=== PATIENT | female | born 1980 | race Caucasian/White ===

== ENCOUNTER 2017-08-01 19:22 | Emergency (ER) | payer SELFPAY ==
[2017-08-01 19:42] VITALS: BP 125/90
--- NOTE | 2017-08-01 20:01 | EDM.PDOC ---
ED HPI GENERAL MEDICAL PROBLEM - General Chief Complaint: ENT Problem Stated Complaint: EAR INFECTION DRAINAGE Time Seen by Provider: 08/01/17 19:33 Source of Information: Reports: Patient, RN Notes Reviewed History Limitations: Reports: No Limitations - History of Present Illness INITIAL COMMENTS - FREE TEXT/NARRATIVE: The patient states that she was putting hydrogen peroxide in her right ear from 07/25/2017 through , 07/28/2017, due to decreased hearing. She developed pain in her right ear this past 07/29/2017. She reports some drainage of brownish material today. She states that she has hallie taking some leftover amoxicillin 500 mg 4 times a day since 07/29/2017, the last dose at 08:00 this morning. She reports numerous prior ear infections. No recent fever. The patient's PCP is Marie Caballero. Treatments BEATER LEAD: Reports: Other (see below) Other Treatments BEATER LEAD: peorixide few days ago Right Ear Pain Score (Numeric/FACES): 9 - Related Data Allergies Allergy/AdvReac Type Severity Reaction Status Date / Time Sulfa (Sulfonamide Allergy Rash Verified 08/01/17 19:34 Antibiotics) Home Meds: Home Meds Aspirin [Ecotrin] 1 tab PO ASDIRECTED PRN 08/01/17 [History] Past Medical History HEENT History: Reports: Allergic Rhinitis - Past Surgical History HEENT Surgical History: Reports: Adenoidectomy, Oral Surgery ([place] teeth extraction), Tonsillectomy Social & Family History - Tobacco Use Smoking Status *Q: Current Some Day Smoker Years of Tobacco use: 16 - Alcohol Use Alcohol Use History: Yes Days Per Week of Alcohol Use: 2 Number of Drinks Per Day: 2 Total Drinks Per Week: 4 Alcohol Use Frequency: Socially - Recreational Drug Use Recreational Drug Use: No - Living Situation & Occupation Living situation: Reports: Single, with Family (daughter) Occupation: Employed (custom dressmaker) ED ROS ENT - Review of Systems Review Of Systems: See Below Constitutional: Reports: No Symptoms HEENT: Reports: No Symptoms Respiratory: Reports: No Symptoms Cardiovascular: Reports: No Symptoms Endocrine: Reports: No Symptoms GI/Abdominal: Reports: No Symptoms : Reports: No Symptoms Musculoskeletal: Reports: No Symptoms Skin: Reports: No Symptoms Neurological: Reports: No Symptoms Psychiatric: Reports: No Symptoms Hematologic/Lymphatic: Reports: No Symptoms Immunologic: Reports: No Symptoms ED EXAM, ENT - Physical Exam Exam: See Below Exam Limited By: No Limitations General Appearance: Alert, WD/WN, No Apparent Distress Eye Exam: Bilateral Eye: Normal Inspection Ears: Normal External Exam, Other (Only brownish dirt in the right external canal, cleaned out with a cotton swab. The canal that appeared to be normal. The right tympanic membrane is grayish in color, but likely with fluid behind the tympanic membrane. No erythema.). No: Auricular Erythema, Auricular Tenderness, Mastoid Tenderness Nose: Normal Inspection, Normal Mucousa, No Blood Mouth/Throat: Normal Inspection, Normal Gums, Normal Lips, Normal Oropharynx, Normal Teeth Head: Atraumatic, Normocephalic Neck: Normal Inspection, Supple, Non-Tender, Full Range of Motion. No: Lymphadenopathy (L), Lymphadenopathy (R) Neurological: Alert, Normal Cognition Psychiatric: Normal Affect Skin: Warm, Dry, Intact, Normal Color, No Rash Course - Vital Signs Last Recorded V/S: Last Vital Signs Temp 36.8 C 08/01/17 19:45 Pulse 75 08/01/17 19:45 Resp 18 08/01/17 19:45 BP 125/90 08/01/17 19:45 Pulse Ox 99 08/01/17 19:45 - Re-Assessments/Exams Free Text/Narrative Re-Assessment/Exam: 08/01/17 19:58 On examination of the patient's right ear, she had oily dirt in the canal, which I removed with a cotton swab. The tympanic membrane is not erythematous, but there may be some fluid in the middle ear. The patient states that she has a history of seasonal allergies; I'm going to recommend that she begin using a nasal steroid spray. I do not see an indication for antibiotics at this time. Departure - Departure Time of Disposition: 19:59 Disposition: Home, Self-Care 01 Condition: Good Clinical Impression: Acute serous otitis media, right ear, Allergic rhinitis - Discharge Information Instructions: Otitis Media, Adult, [id number], Allergic Rhinitis Referrals: Carolyne Caballero INSTRUMENT CALIBRATOR [Primary Care Provider] - Forms: ED Department Discharge Additional Instructions: You were seen in the emergency room for right ear pain and drainage. On examination, you do not have an ear infection, but there appears to be fluid built up in your middle ear, likely as the result of seasonal allergies. We recommend that you STOP taking the amoxicillin, and throat the remaining pills into the trash. Do not flush them down the toilet. We recommend that you START using a nasal steroid spray, such as Flonase or Nasonex, as directed on the label. Follow-up with your PCP, Marie Caballero, as needed. If any other problems, please do not hesitate to return to the ER.
== END 2017-08-01 20:10 | disposition home or self-care (01) ==
LOC: JD.ED 19:22
DX: H65.01 Acute serous otitis media, right ear (principal); J30.9 Allergic rhinitis, unspecified; F17.210 Nicotine dependence, cigarettes, uncomplicated; Z88.2 Allergy status to sulfonamides; Z98.890 Other specified postprocedural states
CPT/HCPCS: 99283

== ENCOUNTER 2017-10-14 18:42 | Emergency (ER) | payer MEDICAID ==
[2017-10-14 19:00] VITALS: BP 136/86
[2017-10-14] MEDS ORDERED: Ketorolac 60 MG/2 ML SDV IM ONE (19:21)
--- NOTE | 2017-10-14 19:28 | EDM.PDOC ---
ED HPI GENERAL MEDICAL PROBLEM - General Chief Complaint: PRESIDENT & FOUNDER Problem Stated Complaint: BAD MENSTRUAL CRAMPS Time Seen by Provider: 10/14/17 19:03 Source of Information: Reports: Patient History Limitations: Reports: No Limitations - History of Present Illness INITIAL COMMENTS - FREE TEXT/NARRATIVE: Is a 37-year-old female. She comes to the ER because she's been having severe menstrual cramps. Apparently this is somewhat normal for her and she tries to take a muscle relaxer for this but it makes her too sleepy to function and she has to function. She has tried [id number] medication such as Advil and Aleve but they have not really helped. She is gone to her OB/ NURSE PRACTITIONER HOSPITALIST doctor who is not really found anything to cause the severe menstrual cramps. They have not provided much of anything for her for these cramps. She is not spoken to her family doctor regarding the cramps and possible therapy. She comes tonight denies any nausea and vomiting denies any diarrhea. She's had no fever no chills no cough no congestion. Her menstrual flow is normal for her. And normally her menstrual periods last for about 5 days. Lower Pelvic Pain Score (Numeric/FACES): 10 - Related Data Allergies Allergy/AdvReac Type Severity Reaction Status Date / Time Sulfa (Sulfonamide Allergy Rash Verified 08/01/17 19:34 Antibiotics) Home Meds: Home Meds Aspirin [Ecotrin] 1 tab PO ASDIRECTED PRN 08/01/17 [History] Meloxicam [Mobic] 15 mg PO DAILY 10/14/17 [History] Muscle Relaxant 1 tab PO TID PRN 10/14/17 [History] traMADol [Ultram] 50 mg PO Q6H PRN #16 tablet 10/14/17 [Rx] Past Medical History - Past Health History Medical/Surgical History: Denies Medical/Surgical History HEENT History: Reports: Allergic Rhinitis Other HEENT History: liimited hearing to the right ear - Past Surgical History HEENT Surgical History: Reports: Adenoidectomy, Oral Surgery, Tonsillectomy Social & Family History - Tobacco Use Smoking Status *Q: Current Some Day Smoker Years of Tobacco use: 2 Packs/Tins Daily: 0.1 Second Hand Smoke Exposure: No - Caffeine Use Caffeine Use: Reports: Coffee, Soda, Tea - Alcohol Use Days Per Week of Alcohol Use: 2 Number of Drinks Per Day: 2 Total Drinks Per Week: 4 - Recreational Drug Use Recreational Drug Use: No Recreational Drug Use Frequency: Rarely - Living Situation & Occupation Living situation: Reports: Single, with Family (daughter) 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 Denies: Diarrhea, Nausea, Vomiting : Reports: Other (Normal menstrual flow). Denies: Dysuria, Flank Pain, Urgency Musculoskeletal: Reports: No Symptoms Skin: Reports: No Symptoms Neurological: Reports: No Symptoms Psychiatric: Reports: No Symptoms Hematologic/Lymphatic: Reports: No Symptoms Immunologic: Reports: No Symptoms ED EXAM, GI/ABD - Physical Exam Exam: See Below Exam Limited By: No Limitations General Appearance: Alert, WD/WN, No Apparent Distress Eyes: Bilateral: Normal Appearance Ears: Normal External Exam Nose: Normal Inspection Throat/Mouth: Normal Inspection Head: Normocephalic Neck: Supple Respiratory/Chest: No Respiratory Distress, Lungs Clear, Normal Breath Sounds Cardiovascular: Regular Rate, Rhythm, No Murmur GI/Abdominal Exam: Soft, Other (Mild suprapubic tenderness on palpation but no upper quadrants or lower quadrant tenderness on palpation) Back Exam: Full Range of Motion Extremities: Normal Inspection, Normal Range of Motion Neurological: Alert, Oriented Psychiatric: Normal Affect, Normal Mood Skin Exam: Warm, Dry Course - Vital Signs Last Recorded V/S: Last Vital Signs Temp 96.9 F 10/14/17 18:59 Pulse 74 10/14/17 18:59 Resp 20 10/14/17 18:59 BP 136/86 10/14/17 18:59 Pulse Ox 99 10/14/17 18:59 - Orders/Labs/Meds Orders: Active Orders 24 hr Category Date Time Status Ketorolac [Toradol] Med 10/14/17 19:21 Once 60 mg IM ONETIME ONE Medication Orders Ketorolac Tromethamine (Toradol) 60 mg IM ONETIME ONE Stop: 10/14/17 19:22 Meds: Medications Generic Name Dose Route Start Last Admin Trade Name Freq PRN Reason Stop Dose Admin Ketorolac Tromethamine 60 mg 10/14/17 19:21 Toradol IM 10/14/17 19:22 ONETIME ONE Departure - Departure Time of Disposition: 19:26 Disposition: Home, Self-Care 01 Condition: Good Clinical Impression: Normal menstrual period, Severe menstrual cramps, Dysmenorrhea, unspecified - Discharge Information Prescriptions: traMADol [Ultram] 50 mg PO Q6H PRN #16 tablet PRN Reason: Pain Instructions: Dysmenorrhea, [id number] Referrals: Angella Khan MD [Primary Care Provider] - Additional Instructions: Using a heating pad to her abdomen, take the medication as needed for the abdominal cramps, follow-up with your family doctor regarding therapy for your severe abdominal cramps each month, you should consider some anti-inflammatory as well as the prescription medications given, return to the ER as needed - My Orders Last 24 Hours: My Active Orders 10/14/17 19:21 Ketorolac [Toradol] 60 mg IM ONETIME ONE - Assessment/Plan Last 24 Hours: My Active Orders 10/14/17 19:21 Ketorolac [Toradol] 60 mg IM ONETIME ONE
== END 2017-10-14 19:39 | disposition home or self-care (01) ==
LOC: SUPCPDRO 18:42 → JD.ED 18:42
DX: N94.6 Dysmenorrhea, unspecified (principal); F17.210 Nicotine dependence, cigarettes, uncomplicated; Z79.82 Long term (current) use of aspirin; Z79.899 Other long term (current) drug therapy; Z88.2 Allergy status to sulfonamides
CPT/HCPCS: 96372; 99284; J1885; 99283

== ENCOUNTER 2018-05-09 02:56 | Emergency (ER) | payer MEDICAID ==
[2018-05-09 03:06] VITALS: BP 122/88
[2018-05-09] MEDS ORDERED: Naproxen 500 MG Tab PO ONE (03:15)
--- NOTE | 2018-05-09 03:21 | EDM.PDOC ---
ED HPI GENERAL MEDICAL PROBLEM - General Chief Complaint: Upper Extremity Injury/Pain Stated Complaint: LEFT WRIST HURTS Time Seen by Provider: 05/09/18 03:06 Source of Information: Reports: Patient, Family (Daughter) History Limitations: Reports: No Limitations - History of Present Illness INITIAL COMMENTS - FREE TEXT/NARRATIVE: The patient states that she has had left wrist pain on and off for about 2 months, after she slept on it wrong. The pain is felt along the ulnar aspect of the wrist, and is made worse with range of motion. No history of trauma. No prior medical evaluation. She came to the ED tonight because she still can't get comfortable. She states that she has tried ice and heat in the past, along with Advil. The patient's PCP is Marie Caballero. The patient expects to see Ms. Caballero later today. Left Wrist Pain Score (Numeric/FACES): 10 - Related Data Allergies Allergy/AdvReac Type Severity Reaction Status Date / Time Sulfa (Sulfonamide Allergy Rash Verified 05/09/18 03:06 Antibiotics) Home Meds: Home Meds Aspirin [Ecotrin] 1 tab PO ASDIRECTED PRN 08/01/17 [History] traMADol [Ultram] 1 tab PO DAILY PRN 05/09/18 [History] Past Medical History HEENT History: Reports: Allergic Rhinitis, Hard of Hearing (liimited hearing to the right ear) Neurological History: Reports: Migraines - Past Surgical History HEENT Surgical History: Reports: Adenoidectomy, Oral Surgery ([place] teeth extraction), Tonsillectomy Social & Family History - Tobacco Use Smoking Status *Q: Current Some Day Smoker Years of Tobacco use: 19 Packs/Tins Daily: 0.1 - Caffeine Use Caffeine Use: Reports: None - Alcohol Use Alcohol Use History: Yes Alcohol Use Frequency: Socially - Recreational Drug Use Recreational Drug Use: No - Living Situation & Occupation Living situation: Reports: Single, with Family (Daughter) Occupation: Unemployed Review of Systems - Review of Systems Review Of Systems: ROS reveals no pertinent complaints other than HPI. ED EXAM, GENERAL - Physical Exam Exam: See Below Exam Limited By: No Limitations General Appearance: Alert, WD/WN, No Apparent Distress Extremities: Other (No visible abnormality to the left wrist, when compared to the right, such as swelling, erythema, ecchymosis, or abrasion. No tenderness to direct palpation of the left wrist or distal left forearm, however, pain is induced in the ulnar aspect of the wrist with both AROM and PROM. Neurovascular status of the left upper extremity is intact.) Course - Vital Signs Last Recorded V/S: Last Vital Signs Temp 35.9 C 05/09/18 03:02 Pulse 84 05/09/18 03:02 Resp 18 05/09/18 03:02 BP 122/88 05/09/18 03:02 Pulse Ox 97 05/09/18 03:02 - Orders/Labs/Meds Orders: Active Orders 24 hr Category Date Time Status Naproxen [Naprosyn] Med 05/09/18 03:15 Once 500 mg PO ONETIME ONE - Re-Assessments/Exams Free Text/Narrative Re-Assessment/Exam: 05/09/18 03:16 The cause of the patient's left wrist pain is unclear. It is not tender to palpation, but pain is induced with ROM. As there is no history of trauma, and there is no tenderness, I don't see an indication for an x-ray at this time. I' ve ordered a single dose of naproxen 500 mg to help with the patient's pain tonight, then she will follow-up with her PCP, Marie Caballero, later today. Departure - Departure Time of Disposition: 03:17 Disposition: Home, Self-Care 01 Condition: Good Clinical Impression: Left wrist pain - Discharge Information Referrals: Carolyne Caballero, CONDITIONING YARD SUPERVISOR [Primary Care Provider] - Additional Instructions: You were seen in the emergency room for left wrist pain on and off since March, without history of trauma. The cause of your wrist pain is not clear, but no emergency medical condition was found on examination. You were given a single dose of prescription strength naproxen in the ER. Follow-up with your PCP, Marie Caballero, later today, for further evaluation and treatment. If any other problems, please do not hesitate to return to the ER. - My Orders Last 24 Hours: My Active Orders 05/09/18 03:15 Naproxen [Naprosyn] 500 mg PO ONETIME ONE - Assessment/Plan Last 24 Hours: My Active Orders 05/09/18 03:15 Naproxen [Naprosyn] 500 mg PO ONETIME ONE
== END 2018-05-09 03:26 | disposition home or self-care (01) ==
LOC: JD.ED 02:56
DX: M25.532 Pain in left wrist (principal); F17.210 Nicotine dependence, cigarettes, uncomplicated; Z88.2 Allergy status to sulfonamides; Z79.899 Other long term (current) drug therapy
CPT/HCPCS: 99283; A9270

== ENCOUNTER 2020-07-25 20:03 | Emergency (ER) | payer MEDICAID ==
[2020-07-25] MEDS ORDERED: HYDROmorphone 1 MG/ML Syringe IVPUSH STA (20:12)
[2020-07-25] MEDS ORDERED: Ondansetron 4 MG/2 ML SDV IVPUSH ONE (20:12)
[2020-07-25] MEDS ORDERED: Sodium Chloride 0.9% 1,000 ML IV SCH (20:15)
[2020-07-25 20:21] VITALS: BP 138/99; PULSE 104
--- NOTE | 2020-07-25 20:28 | EDM.PDOC ---
ED HPI GENERAL MEDICAL PROBLEM - General Chief Complaint: Flank Pain Stated Complaint: LT SIDE FLANK PAIN Time Seen by Provider: 07/25/20 20:12 Source of Information: Reports: Patient, RN Notes Reviewed History Limitations: Reports: No Limitations - History of Present Illness INITIAL COMMENTS - FREE TEXT/NARRATIVE: Patient is a 40-year-old female who presents to the ED for her left-sided flank pain. Patient notes that this is been present for the last 2 days, but has worsened today. She states it kind of comes and goes. She does note that it radiates into her groin as well. She is not taking anything for pain management, she does note that she is going to the bathroom more frequently, but no dysuria. She states last time she is felt anything like this was when she had a UTI roughly 18 years ago with . She notes a little bit of pain at the end of her urination. States her last menstrual period was roughly 1 month ago, and states she could be but is really just unsure. She denies any history of kidney stones. She has not had any fevers or chills, cough or shortness of breath, nausea or vomiting or diarrhea. 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 Neurological History: Reports: Migraines Psychiatric History: Reports: Anxiety - Infectious Disease History Infectious Disease History: Reports: Measles - Past Surgical History HEENT Surgical History: Reports: Adenoidectomy, Oral Surgery, Tonsillectomy Social & Family History - Tobacco Use Smoking Status *Q: Never Smoker - Caffeine Use Caffeine Use: Reports: Soda, Tea - Recreational Drug Use Recreational Drug Use: No - Living Situation & Occupation Living situation: Reports: Single, with Family (Daughter) Occupation: Unemployed ED ROS GENERAL - Review of Systems Review Of Systems: Comprehensive ROS is negative, except as noted in HPI. ED EXAM, RENAL/ - Physical Exam Exam: See Below Exam Limited By: No Limitations General Appearance: Alert, WD/WN, No Apparent Distress Eye Exam: Bilateral Eye: EOMI, Normal Inspection, PERRL Respiratory/Chest: No Respiratory Distress, Lungs Clear, Normal Breath Sounds, No Accessory Muscle Use, Chest Non-Tender Cardiovascular: Normal Peripheral Pulses, Regular Rate, Rhythm, No Murmur GI/Abdominal: Normal Bowel Sounds, Soft, Non-Tender, No Distention, No Mass Back Exam: Normal Inspection, Full Range of Motion, CVA Tenderness (L) Extremities: Normal Inspection, Normal Capillary Refill Neurological: Alert, Oriented, Normal Cognition, No Motor/Sensory Deficits Psychiatric: Normal Affect, Normal Mood Skin Exam: Warm, Dry, Intact, Normal Color, No Rash Course - Vital Signs Last Recorded V/S: Last Vital Signs Temp 97.4 F 07/25/20 20:19 Pulse 104 H 07/25/20 20:19 Resp 20 07/25/20 20:19 BP 138/99 H 07/25/20 20:19 Pulse Ox 98 07/25/20 20:19 - Orders/Labs/Meds Orders: Active Orders 24 hr Category Date Time Status Strain Urine [RC] ASDIRECTED Care 07/25/20 20:12 Ordered Abdomen Pelvis wo Cont [CT] Stat Exams 07/25/20 20:12 Ordered Magnesium Citrate [Citrate of Magnesia] Med 07/25/20 22:21 Once 296 ml PO ONETIME ONE Sodium Chloride 0.9% @ 150 MLS/HR (1000ml Bag) Med 07/25/20 20:15 Ordered Sodium Chloride 0.9% [Normal Saline] 1,000 ml IV ASDIRECTED Medication Orders Sodium Chloride (Normal Saline) 1,000 mls @ 150 mls/hr IV ASDIRECTED SIMONA Last Admin: 07/25/20 20:28 Dose: 150 mls/hr Documented by: BELKIS Labs: Laboratory Tests 07/25/20 07/25/20 07/25/20 Range/Units 20:25 20:25 21:15 WBC 9.31 (3.98-10.04) K/mm3 RBC 5.23 H (3.98-5.22) M/mm3 Hgb 14.3 (11.2-15.7) gm/dl Hct 44.7 (34.1-44.9) % MCV 85.5 (79.4-94.8) fl MCH 27.3 (25.6-32.2) pg MCHC 32.0 L (32.2-35.5) g/dl RDW Std Deviation 43.3 (36.4-46.3) fL Plt Count 369 (182-369) K/mm3 MPV 9.4 (9.4-12.3) fl Neut % (Auto) 78.4 H (34.0-71.1) % Lymph % (Auto) 14.9 L (19.3-51.7) % [place] % (Auto) 5.6 (4.7-12.5) % Eos % (Auto) 0.9 (0.7-5.8) Baso % (Auto) 0.1 (0.1-1.2) % Neut # (Auto) 7.30 H (1.56-6.13) K/mm3 Lymph # (Auto) 1.39 (1.18-3.74) K/mm3 [place] # (Auto) 0.52 H (0.24-0.36) K/mm3 Eos # (Auto) 0.08 (0.04-0.36) K/mm3 Baso # (Auto) 0.01 (0.01-0.08) K/mm3 Sodium 141 (136-145) mEq/L Potassium 3.7 (3.5-5.1) mEq/L Chloride 104 (98-107) mEq/L Carbon Dioxide 28 (21-32) mEq/L Anion Gap 12.7 (5-15) BUN 13 (7-18) mg/dL Creatinine 0.8 (0.55-1.02) mg/dL Est Cr Clr Drug Dosing 70.54 mL/min Estimated GFR (MDRD) > 60 (>60) mL/min BUN/Creatinine Ratio 16.3 (14-18) Glucose 92 (74-106) mg/dL Calcium 8.5 (8.5-10.1) mg/dL Total Bilirubin 0.2 (0.2-1.0) mg/dL AST 5 L (15-37) U/L ALT 15 (14-59) U/L Alkaline Phosphatase 102 (46-116) U/L Total Protein 7.4 (6.4-8.2) g/dl Albumin 3.4 (3.4-5.0) g/dl Globulin 4.0 gm/dL Albumin/Globulin Ratio 0.9 L (1-2) Urine Color Yellow (Yellow) Urine Appearance Clear (Clear) Urine pH 6.0 (5.0-8.0) Ur Specific [place] > or = 1.030 (1.005-1.030) Urine Protein Negative (Negative) Urine Glucose (UA) Negative (Negative) Urine Ketones Negative (Negative) Urine Occult Blood Trace-intact H (Negative) Urine Nitrite Negative (Negative) Urine Bilirubin Negative (Negative) Urine Urobilinogen 0.2 (0.2-1.0) Ur Leukocyte Esterase Negative (Negative) Urine RBC 0-5 (0-5) /hpf Urine WBC 0-5 (0-5) /hpf Ur Squamous Epith Cells 5-10 H (0-5) /hpf Urine Bacteria Few (FEW) /hpf Urine Mucus Few (FEW) /hpf Urine HCG, Qual (NEGATIVE) 07/25/20 Range/Units 21:18 WBC (3.98-10.04) K/mm3 RBC (3.98-5.22) M/mm3 Hgb (11.2-15.7) gm/dl Hct (34.1-44.9) % MCV (79.4-94.8) fl MCH (25.6-32.2) pg MCHC (32.2-35.5) g/dl RDW Std Deviation (36.4-46.3) fL Plt Count (182-369) K/mm3 MPV (9.4-12.3) fl Neut % (Auto) (34.0-71.1) % Lymph % (Auto) (19.3-51.7) % [place] % (Auto) (4.7-12.5) % Eos % (Auto) (0.7-5.8) Baso % (Auto) (0.1-1.2) % Neut # (Auto) (1.56-6.13) K/mm3 Lymph # (Auto) (1.18-3.74) K/mm3 [place] # (Auto) (0.24-0.36) K/mm3 Eos # (Auto) (0.04-0.36) K/mm3 Baso # (Auto) (0.01-0.08) K/mm3 Sodium (136-145) mEq/L Potassium (3.5-5.1) mEq/L Chloride (98-107) mEq/L Carbon Dioxide (21-32) mEq/L Anion Gap (5-15) BUN (7-18) mg/dL Creatinine (0.55-1.02) mg/dL Est Cr Clr Drug Dosing mL/min Estimated GFR (MDRD) (>60) mL/min BUN/Creatinine Ratio (14-18) Glucose (74-106) mg/dL Calcium (8.5-10.1) mg/dL Total Bilirubin (0.2-1.0) mg/dL AST (15-37) U/L ALT (14-59) U/L Alkaline Phosphatase (46-116) U/L Total Protein (6.4-8.2) g/dl Albumin (3.4-5.0) g/dl Globulin gm/dL Albumin/Globulin Ratio (1-2) Urine Color (Yellow) Urine Appearance (Clear) Urine pH (5.0-8.0) Ur Specific [place] (1.005-1.030) Urine Protein (Negative) Urine Glucose (UA) (Negative) Urine Ketones (Negative) Urine Occult Blood (Negative) Urine Nitrite (Negative) Urine Bilirubin (Negative) Urine Urobilinogen (0.2-1.0) Ur Leukocyte Esterase (Negative) Urine RBC (0-5) /hpf Urine WBC (0-5) /hpf Ur Squamous Epith Cells (0-5) /hpf Urine Bacteria (FEW) /hpf Urine Mucus (FEW) /hpf Urine HCG, Qual Negative (NEGATIVE) Meds: Medications Generic Name Dose Route Start Last Admin Trade Name Freq PRN Reason Stop Dose Admin Sodium Chloride 1,000 mls @ 150 mls/hr 07/25/20 20:15 07/25/20 20:28 Normal Saline IV 150 mls/hr ASDIRECTED SIMONA Administration Discontinued Medications Generic Name Dose Route Start Last Admin Trade Name Freq PRN Reason Stop Dose Admin Cefdinir 300 mg 07/25/20 22:11 07/25/20 22:41 Omnicef PO 07/25/20 22:12 300 mg ONETIME ONE Administration Hydromorphone HCl 1 mg 07/25/20 20:12 07/25/20 20:31 Dilaudid IVPUSH 07/25/20 20:13 Not Given ONETIME STA Ondansetron HCl 4 mg 07/25/20 20:12 07/25/20 20:31 Zofran IVPUSH 07/25/20 20:13 Not Given ONETIME ONE - Re-Assessments/Exams Free Text/Narrative Re-Assessment/Exam: 07/25/20 20:27 Patient presents to the ED for evaluation of her left-sided flank pain and groin pain. Suspicious for possible pyelonephritis although she is afebrile. Nonetheless she will have abdomen CT done without contrast, after we get urine and determine status. She will have basic labs to ascertain kidney function as well. Fluids will be given for management along with some pain medications and nausea medications. 07/25/20 22:12 Is a returned and are essentially unremarkable. Urine shows few bacteria, no ni trites or leukocyte Estrace with a trace red blood cells. She could be suffering from the urethritis. Official radiology read of the CT is still pending at this time. Although there are no grossly remarkable abnormalities identified by myself she does have some kidney stones within the right kidney, but this should not be causing her symptoms today. 07/25/20 22:43 CT does demonstrate some gallstones within the gallbladder without evidence of cholecystitis. There are several stones within the kidney as I noted above, but no ureteral stones. No other acute abnormalities are seen on the patient's CT scan. Again I did appreciate quite a bit of stool throughout the colon, patient be sent home with a bottle of mag citrate for management. Departure - Departure Time of Disposition: 22:14 Disposition: Home, Self-Care 01 Condition: Good Clinical Impression: Urethritis, Gallstones Constipation Qualifiers: Constipation type: other constipation type Qualified Code(s): K59.09 - Other constipation - Discharge Information *PRESCRIPTION DRUG MONITORING PROGRAM REVIEWED*: No *COPY OF PRESCRIPTION DRUG MONITORING REPORT IN PATIENT MARJORIE: No Prescriptions: Cefdinir [Omnicef] 300 mg PO BID 5 Days #10 cap Instructions: Constipation, Adult, [id number], Urethritis, Adult, Flank Pain, Adult, [id number] Referrals: Luciana Sotelo NP [Primary Care Provider] - Forms: ED Department Discharge Additional Instructions: You have been evaluated in the ED for your left flank pain. Your urinalysis was consistent with an acute urethritis; which is an infection of your urethra. Your urine was sent for culture, and you will be notified if you should need a change in your antibiotic. This may take up to 48 hours to result. You may take AZO for urinary pain relief. This is available over the counter, and can be attained at any retail store like [employer] or any pharmacy. Please be aware that this medication will make your urine turn orange. You have been given a prescription for cefdinir, 300 mg 1 tablet 2 times a day for 5 days. This has been electronically sent to the [facility] pharmacy located in in the [facility]. CT also demonstrated he had quite a bit of stool throughout your colon. You have been given a bottle mag citrate, you may start this tomorrow. Please drink one half bottle wait a few hours if you do not have a rather large bowel movement, repeat with the last half bottle. Your CT did demonstrate you had a few gallstones within your gallbladder. You may follow-up for further evaluation of this with your primary care provider for imaging studies if warranted. Please increase your oral fluid intake and try to stay adequately hydrated. Please return to the ED if your symptoms change or worsen. Sepsis Event Note (ED) - Evaluation Sepsis Screening Result: No Definite Risk - Focused Exam Vital Signs: Vital Signs Temp Pulse Resp BP Pulse Ox 07/25/20 20:19 97.4 F 104 H 20 138/99 H 98 - My Orders Last 24 Hours: My Active Orders 07/25/20 20:12 Strain Urine [RC] ASDIRECTED Abdomen Pelvis wo Cont [CT] Stat 07/25/20 20:15 Sodium Chloride 0.9% @ 150 MLS/HR (1000ml Bag) Sodium Chloride 0.9% [Normal Saline] 1,000 ml IV ASDIRECTED 07/25/20 22:21 Magnesium Citrate [Citrate of Magnesia] 296 ml PO ONETIME ONE - Assessment/Plan Last 24 Hours: My Active Orders 07/25/20 20:12 Strain Urine [RC] ASDIRECTED Abdomen Pelvis wo Cont [CT] Stat 07/25/20 20:15 Sodium Chloride 0.9% @ 150 MLS/HR (1000ml Bag) Sodium Chloride 0.9% [Normal Saline] 1,000 ml IV ASDIRECTED 07/25/20 22:21 Magnesium Citrate [Citrate of Magnesia] 296 ml PO ONETIME ONE
[2020-07-25] MEDS ORDERED: Cefdinir 300 MG Cap PO ONE (22:11)
[2020-07-25] MEDS ORDERED: Magnesium Citrate Solution 296 ML Bottle PO ONE (22:21)
--- NOTE | 2020-07-26 09:15 | CT ---
CT abdomen and pelvis Technique: Multiple axial sections were obtained from above the dome of the diaphragm inferiorly through the pubic symphysis. Intravenous and oral contrast not utilized. Study has been performed as a ureteral stone protocol. Comparison: No prior abdominal imaging is available. Findings: Small nonobstructing calculi are seen within both kidneys measuring less than 5 mm. No ureteral dilatation or ureteral calculus is seen. Visualized lung bases show nothing acute. Noncontrast appearance of the liver and spleen shows no focal abnormality. Adrenal glands show no nodule. Pancreas shows no discrete abnormality. Aorta shows no aneurysm. Gallbladder shows several gallstones. No retroperitoneal adenopathy is seen. No mesenteric abnormalities are noted. No pelvic mass or adenopathy is seen. Mild increased stool is noted throughout the colon. Appendix not visualized with certainty. Bone window settings were reviewed which appear within normal limits for the patient's age. Impression: 1. Mild increased stool throughout the colon. 2. Nonobstructing small calculi within both kidneys with no ureteral dilatation or ureteral stone. 3. Gallstones. Diagnostic code #2 This report was dictated in MDT I agree with preliminary report from min, finalized on 07/25/20, 11:41 PM Central Daylight Time
== END 2020-07-25 22:55 | disposition home or self-care (01) ==
LOC: JD.ED 20:03
DX: K80.20 Calculus of gallbladder without cholecystitis without obstruction (principal); K59.09 Other constipation; N34.2 Other urethritis; Z88.2 Allergy status to sulfonamides
CPT/HCPCS: 36415; 74176; 80053; 81001; 81025; 85025; 96360; 96361; 99284; A9270; J7030

== ENCOUNTER 2020-10-07 16:16 | Emergency (ER) | payer MEDICAID ==
[2020-10-07 16:32] VITALS: BP 94/63; PULSE 90
[2020-10-07] MEDS ORDERED: Ketorolac 60 MG/2 ML SDV IM ONE (17:11)
--- NOTE | 2020-10-07 18:48 | EDM.PDOC ---
ED HPI GENERAL MEDICAL PROBLEM - General Chief Complaint: Lower Extremity Injury/Pain Stated Complaint: RT LEG PAIN Time Seen by Provider: 10/07/20 16:32 Source of Information: Reports: Patient, RN Notes Reviewed History Limitations: Reports: No Limitations - History of Present Illness INITIAL COMMENTS - FREE TEXT/NARRATIVE: Patient is a 4-year-old female presenting to the emergency department with complaints of pain to her right posterior thigh and calf. She states on Tuesday of this week, she was working on a car which required her to stand on her tippy toes frequently. Since that time she has had problems with pain to her posterior thigh and posterior calf. She is taken Tylenol off and on with no relief. She has been using capsaicin muscle rub without relief. She feels that she pulled a muscle in her leg. Denies any previous injury this extremity. She has no history of blood clots. Had no chest pain or shortness of breath. 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 Neurological History: Reports: Migraines Psychiatric History: Reports: Anxiety - Infectious Disease History Infectious Disease History: Reports: Measles - Past Surgical History HEENT Surgical History: Reports: Adenoidectomy, Oral Surgery, Tonsillectomy Social & Family History - Family History Family Medical History: No Pertinent Family History - Tobacco Use Tobacco Use Status *Q: Never Tobacco User - Caffeine Use Caffeine Use: Reports: None - Recreational Drug Use Recreational Drug Use: No - Living Situation & Occupation Living situation: Reports: Single, with Family (Daughter) Occupation: Unemployed Review of Systems - Review of Systems Review Of Systems: Comprehensive ROS is negative, except as noted in HPI. ED EXAM, GENERAL - Physical Exam Exam: See Below General Appearance: Alert, WD/WN, No Apparent Distress, Other (fidgety) Respiratory/Chest: No Respiratory Distress, Lungs Clear, Normal Breath Sounds, No Accessory Muscle Use, Chest Non-Tender Cardiovascular: Normal Peripheral Pulses, Regular Rate, Rhythm, No Edema, No Gallop, No JVD, No Murmur, No Rub Extremities: Other (Mild tenderness to palpation of the right hamstring and calf muscles. No obvious spasm, swelling, or ecchymosis.) Neurological: Alert, Oriented, CN II-XII Intact, Normal Cognition, Normal Gait, Normal Reflexes, No Motor/Sensory Deficits Psychiatric: Normal Affect, Normal Mood Course - Vital Signs Last Recorded V/S: Last Vital Signs Temp 97.2 F 10/07/20 16:28 Pulse 90 10/07/20 16:28 Resp 18 10/07/20 16:28 BP 94/63 10/07/20 16:28 Pulse Ox 98 10/07/20 16:28 - Orders/Labs/Meds Labs: Laboratory Tests 10/07/20 Range/Units 17:33 D-Dimer, Quantitative 0.36 (0.19-0.50) mg/L Meds: Medications Discontinued Medications Generic Name Dose Route Start Last Admin Trade Name Steve PRN Reason Stop Dose Admin Ketorolac Tromethamine 60 mg 10/07/20 17:11 10/07/20 17:26 Toradol IM 10/07/20 17:12 60 mg ONETIME ONE Administration - Re-Assessments/Exams Free Text/Narrative Re-Assessment/Exam: Patient is a 40-year-old female presenting to the emergency department with complaints of right posterior leg pain x3 days. Suspicion is for strained muscle, however I have ordered a D-dimer to rule out possibility of DVT. Have ordered Toradol 60 mg IM for pain. 10/07/20 18:46 D-dimer was normal. We will discharge the patient home with a prescription for Naprosyn. Discharge instructions as documented. Departure - Departure Time of Disposition: 18:46 Disposition: Home, Self-Care 01 Condition: Good Clinical Impression: Muscle strain - Discharge Information *PRESCRIPTION DRUG MONITORING PROGRAM REVIEWED*: No *COPY OF PRESCRIPTION DRUG MONITORING REPORT IN PATIENT MARJORIE: No Prescriptions: Naproxen [Naprosyn] 500 mg PO Q12HR 5 Days #10 tab Referrals: Keenan Parikh, LICENSED THERAPIST [Primary Care Provider] - Additional Instructions: You were seen in the emergency department today for right posterior leg pain. Blood work was completed which shows that you do not have a blood clot in your leg. You are likely suffering from a muscle strain. A prescription for Naprosyn has been sent to [facility] pharmacy. Take this medication as prescribed. Do not take any additional NSAIDs such as ibuprofen or Aleve in addition to this medication. You may use Tylenol as needed. Continue to use your capsaicin muscle rub as needed. Follow-up with your primary care provider if pain is not improved in the next few days. Return to ER as needed. Sepsis Event Note (ED) - Evaluation Sepsis Screening Result: No Definite Risk - Focused Exam Vital Signs: Vital Signs Temp Pulse Resp BP Pulse Ox 10/07/20 16:28 97.2 F 90 18 94/63 98
== END 2020-10-07 19:10 | disposition home or self-care (01) ==
LOC: JD.ED 16:16
DX: S76.911A Strain of unspecified muscles, fascia and tendons at thigh level, right thigh, initial encounter (principal); Z88.2 Allergy status to sulfonamides; X58.XXXA Exposure to other specified factors, initial encounter
CPT/HCPCS: 36415; 85379; 96372; 99283; J1885

== ENCOUNTER 2020-10-09 14:56 | Emergency (ER) | payer MEDICAID ==
[2020-10-09 15:13] VITALS: BP 103/67; PULSE 78
[2020-10-09] MEDS ORDERED: Orphenadrine 100 MG Tab.ER PO ONE (15:20)
[2020-10-09] MEDS ORDERED: Ketorolac 60 MG/2 ML SDV IM ONE (15:20)
--- NOTE | 2020-10-09 15:30 | EDM.PDOC ---
ED HPI GENERAL MEDICAL PROBLEM - General Chief Complaint: Lower Extremity Injury/Pain Stated Complaint: R LEG PAIN Time Seen by Provider: 10/09/20 15:08 Source of Information: Reports: Patient, RN Notes Reviewed History Limitations: Reports: No Limitations - History of Present Illness INITIAL COMMENTS - FREE TEXT/NARRATIVE: Patient is a 40-year-old female who presents to the ED for her right leg pain. Patient notes she was seen in this ER a few days ago, had a ultrasound taken to rule out DVT, and was diagnosed with a right posterior thigh and calf muscle strain. She was placed on Naprosyn, and sent home with conservative management. Patient states she has been using the Naprosyn as directed, but yesterday she took one more dose mid day than she would have normally. She does not think it controls the pain for long enough. She states the pain in her thigh is better but she still having pain in her lower calf. She notes if she walks around it makes the pain better, or if she lays down it makes the pain better she tried some heat to the area but this seemed to make it worse, she has not tried ice. She states that the cream she was using just made her legs feel cold so she is not using that any longer. She is not using any other Tylenol ibuprofen. She states is a sharp pain, but does not feel like a charley horse, she states this is more of an annoying aggravating pain than anything. Her primary care provider is Dick Parikh. Patient denies any other sick-like symptoms, fever/chills, cough/shortness of breath, nausea/vomiting/diarrhea. The pat del's initial aggravating injury was tiptoeing over her car, for prolonged amount of time. The patient notes that the pain has not changed in nature, it also has not worsened. 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 Neurological History: Reports: Migraines Psychiatric History: Reports: Anxiety - Infectious Disease History Infectious Disease History: Reports: Measles - Past Surgical History HEENT Surgical History: Reports: Adenoidectomy, Oral Surgery, Tonsillectomy Social & Family History - Family History Family Medical History: No Pertinent Family History - Tobacco Use Tobacco Use Status *Q: Never Tobacco User - Caffeine Use Caffeine Use: Reports: Energy Drinks, Soda - Recreational Drug Use Recreational Drug Use: No - Living Situation & Occupation Living situation: Reports: Single, with Family (Daughter) Occupation: Unemployed Review of Systems - Review of Systems Review Of Systems: Comprehensive ROS is negative, except as noted in HPI. ED EXAM, GENERAL - Physical Exam Exam: See Below Exam Limited By: No Limitations General Appearance: Alert, WD/WN, No Apparent Distress Respiratory/Chest: No Respiratory Distress, Lungs Clear, Normal Breath Sounds, No Accessory Muscle Use, Chest Non-Tender Cardiovascular: Normal Peripheral Pulses, Regular Rate, Rhythm, No Murmur Peripheral Pulses: 2+: Radial (L), Radial (R) GI/Abdominal: Normal Bowel Sounds, Soft, Non-Tender, No Distention, No Mass Extremities: Normal Inspection, Normal Range of Motion, Normal Capillary Refill, Other (1 spot of point tenderness to right posteriorlateral calf) Psychiatric: Normal Affect, Normal Mood Skin Exam: Warm, Dry, Intact, Normal Color, No Rash Course - Vital Signs Last Recorded V/S: Last Vital Signs Temp 97.3 F 10/09/20 15:11 Pulse 78 10/09/20 15:11 Resp 20 10/09/20 15:11 BP 103/67 10/09/20 15:11 Pulse Ox 97 10/09/20 15:11 - Orders/Labs/Meds Meds: Medications Discontinued Medications Generic Name Dose Route Start Last Admin Trade Name Freq PRN Reason Stop Dose Admin Ketorolac Tromethamine 60 mg 10/09/20 15:20 10/09/20 15:28 Toradol IM 10/09/20 15:21 60 mg ONETIME ONE Administration Orphenadrine Citrate 100 mg 10/09/20 15:20 10/09/20 15:28 Norflex PO 10/09/20 15:21 100 mg ONETIME ONE Administration - Re-Assessments/Exams Free Text/Narrative Re-Assessment/Exam: 10/09/20 15:30 Patient presents to the ED for the evaluation of her ongoing calf pain. I do highly suspect that the muscle strain is taking a lot longer to get better. Have ordered a injection of Toradol along with 100 mg p.o. Norflex for management. Will likely discharge home with conservative recommendations once again along with a prescription for Norflex. 10/09/20 15:56 Patient reports pretty good relief of her symptoms with the medications given. We will discharge home with general recommendations and some Norflex. Departure - Departure Time of Disposition: 15:56 Disposition: Home, Self-Care 01 Condition: Good Clinical Impression: Strain of right calf muscle - Discharge Information *PRESCRIPTION DRUG MONITORING PROGRAM REVIEWED*: No *COPY OF PRESCRIPTION DRUG MONITORING REPORT IN PATIENT MARJORIE: No Prescriptions: Orphenadrine [Norflex] 100 mg PO BID PRN #20 tab PRN Reason: Spasms Instructions: Muscle Strain, [id number], Elastic Bandage and RICE Therapy Referrals: Keenan Parikh REEXAMINER [Primary Care Provider] - Forms: ED Department Discharge Additional Instructions: You have been evaluated in the ED for your ongoing right leg/calf please continue to utilize the Naprosyn already prescribed to you, as pain. Please use ice as tolerated to the affected area. Please try to elevate the affected area to relieve swelling. You may take Tylenol 500 mg or ibuprofen 600mg q6 hrs for pain relief. Please do so until you have a tolerable level of pain with activity. Do not exceed 4000mg Tylenol or 3200mg ibuprofen in a 24 hour time period. Please continue to use the Naprosyn medication already prescribed as directed on the bottle. You have been given a prescription of Norflex as well for muscle spasms. Use 1 tablet every 12 hours as needed for further muscle spasms. The N orflex medication was electronically prescribed to the [place] [facility], you will need to go there tomorrow during normal business hours to pick this up and take as directed. Please return to ED if your symptoms should change or worsen. Sepsis Event Note (ED) - Evaluation Sepsis Screening Result: No Definite Risk - Focused Exam Vital Signs: Vital Signs Temp Pulse Resp BP Pulse Ox 10/09/20 15:11 97.3 F 78 20 103/67 97
== END 2020-10-09 16:10 | disposition home or self-care (01) ==
LOC: JD.ED 14:56
DX: S86.911A Strain of unspecified muscle(s) and tendon(s) at lower leg level, right leg, initial encounter (principal); Z88.2 Allergy status to sulfonamides; X58.XXXA Exposure to other specified factors, initial encounter
CPT/HCPCS: 96372; 99283; A9270; J1885

== ENCOUNTER 2022-06-01 18:39 | Emergency (ER) | payer MEDICAID ==
[2022-06-01 19:14] VITALS: BP 124/88; PULSE 88
[2022-06-01] MEDS ORDERED: Sodium Chloride 0.9% 1,000 ML IV ONE (19:31)
== END 2022-06-01 21:19 | disposition home or self-care (01) ==
LOC: JD.ED 18:39
DX: R42 Dizziness and giddiness (principal); Z88.2 Allergy status to sulfonamides
CPT/HCPCS: 36415; 71046; 80053; 83735; 84443; 84484; 85025; 85379; 93005; 96360; 99284; J7030

== ENCOUNTER 2023-03-06 20:19 | Emergency (ER) | payer MEDICAID ==
[2023-03-06 20:38] VITALS: BP 126/74; PULSE 81
[2023-03-06] MEDS ORDERED: Sodium Chloride 0.9% 10 ML Syringe FLUSH PRN (21:47)
[2023-03-06] MEDS ORDERED: Sodium Chloride 0.9% 1,000 ML IV STA (21:47)
== END 2023-03-06 23:18 | disposition home or self-care (01) ==
LOC: JD.ED 20:19
DX: R42 Dizziness and giddiness (principal); E03.9 Hypothyroidism, unspecified; Z88.2 Allergy status to sulfonamides
CPT/HCPCS: 36415; 71045; 80053; 84443; 85025; 93005; 96360; 99284; J7030; 93010

== ENCOUNTER 2023-04-01 17:11 | Emergency (ER) | payer MEDICAID ==
[2023-04-01 17:20] VITALS: BP 119/84; PULSE 89
== END 2023-04-01 17:57 | disposition home or self-care (01) ==
LOC: JD.ED 17:11
DX: K04.7 Periapical abscess without sinus (principal); K02.9 Dental caries, unspecified; Z88.2 Allergy status to sulfonamides
CPT/HCPCS: 99283

== ENCOUNTER 2024-04-26 01:32 | Emergency (ER) | payer MEDICAID ==
[2024-04-26 02:08] LABS: BASOPHILS ABSOLUTE AUTO 0.1 K/mm3 (0.0-0.2); BASOPHILS PERCENT AUTO 0.8 % (0.0-1.0); EOSINOPHILS ABSOLUTE AUTO 0.2 K/mm3 (0.0-0.4); EOSINOPHILS PERCENT AUTO 2.2 % (0.0-6.0); HEMATOCRIT 37.7 % (37.0-47.0); HEMOGLOBIN 12.1 gm/dl (12.0-16.0); IMMATURE GRAN ABSOLUTE AUTO 0.01 K/mm3 (0.00-0.05); IMMATURE GRAN PERCENT AUTO 0.1 % (0.0-0.4); LYMPHOCYTES ABSOLUTE AUTO 2.6 K/mm3 (1.0-4.8); LYMPHOCYTES PERCENT AUTO 36.6 % (24.0-44.0); MEAN CORPUSCULAR HEMOGLOBIN 26.4 pg (28.0-32.0); MEAN CORPUSCULAR HGB CONC 32.1 g/dl (32.0-36.0); MEAN CORPUSCULAR VOLUME 82.3 fl (83.0-99.0); MEAN PLATELET VOLUME 9.9 fl (9.4-12.3); MONOCYTES ABSOLUTE AUTO 0.7 K/mm3 (0.0-0.8); MONOCYTES PERCENT AUTO 9.3 % (0.0-8.0); NEUTROPHILS ABSOLUTE AUTO 3.7 K/mm3 (1.8-7.7); PLATELET COUNT,PLT 335 K/mm3 (150-400); RED BLOOD CELL COUNT 4.58 M/mm3 (4.10-5.30); WHITE BLOOD CELL COUNT,WBC 7.18 K/mm3 (3.9-11.3)
[2024-04-26 02:24] LABS: HCG QUALITATIVE,SERUM NEGATIVE (NEGATIVE)
[2024-04-26 02:27] LABS: A/G RATIO 0.9 (1-2); ALANINE AMINOTRANSFERASE,ALT 10 U/L (14-59); ALBUMIN 3.1 g/dl (3.4-5.0); ALKALINE PHOSPHATASE 88 U/L (46-116); ANION GAP 12.8 (5-15); ASPARTATE AMNIOTRANSFERASE,AST 4 U/L (15-37); BILIRUBIN TOTAL 0.1 mg/dL (0.2-1.0); BLOOD UREA NITROGEN,BUN 13 mg/dL (7-18); BUN/CREATININE RATIO 18.6 (14-18); CALCIUM 7.8 mg/dL (8.5-10.1); CARBON DIOXIDE,CO2 25 mEq/L (21-32); CHLORIDE,CL 104 mEq/L (98-107); CREATININE 0.7 mg/dL (0.55-1.02); EST CRCL DRUG DOSING (CG) 77.39 mL/min; ESTIMATED GFR 109 mL/min (>60); GLUCOSE RANDOM 86 mg/dL (70-99); LIPASE 55 U/L (16-77); POTASSIUM,K 3.8 mEq/L (3.5-5.1); PROTEIN TOTAL,TP 6.6 g/dl (6.4-8.2); SODIUM,NA 138 mEq/L (136-145)
[2024-04-26 02:30] LABS: TROPONIN I HIGH SENSITIVITY < 4 pg/mL (<=51)
[2024-04-26 02:39] LABS: PRO B-TYPE NATRIUR PEPT,BNPPRO 43 pg/mL (0-125)
[2024-04-26 03:12] VITALS: BP 104/77; PULSE 83
== END 2024-04-26 03:10 | disposition home or self-care (01) ==
LOC: JD.ED 01:32
DX: R07.9 Chest pain, unspecified (principal); Z79.2 Long term (current) use of antibiotics; Z88.2 Allergy status to sulfonamides
CPT/HCPCS: 36415; 71045; 71045-26; 80053; 83690; 83880; 84484; 84703; 85025; 93005; 93010; 99284; 99285

== ENCOUNTER 2024-12-28 22:36 | Emergency (ER) | payer MEDICAID ==
[2024-12-29 01:06] VITALS: BP 124/81; PULSE 97
== END 2024-12-29 00:36 | disposition home or self-care (01) ==
LOC: JD.ED 22:36
DX: J10.1 Influenza due to other identified influenza virus with other respiratory manifestations (principal); Z88.2 Allergy status to sulfonamides; Z79.899 Other long term (current) drug therapy
CPT/HCPCS: 71045; 71045-26; 87428-QW; 99283